=== PATIENT | male | born 1990 | race Caucasian/White ===

== ENCOUNTER 2024-07-12 22:14 | Inpatient (IN) | payer OTHER, SELFPAY ==
[2024-07-12] VITALS (7 sets, daily range): BP systolic 126–157; BP diastolic 89–117; BMI 19.6
[2024-07-12] MEDS: NSS 1000 IV ×2 (18:20→20:49)
--- NOTE | 2024-07-12 18:22 | ED.GENMED ---
History of Present Illness
General
Chief Complaint: Withdrawal Symptoms
Source: patient and police
Exam Limitations: none
Time Seen by Provider: 07/12/24 18:15
Nursing documentation reviewed up to this point in time: agreed with
History of Present Illness
History of Present Illness:
34-year-old male with a past medical history of polysubstance use presents to the emergency room in police custody for evaluation of multiple symptoms he attributes to withdrawal. Patient admits to regular alcohol intake�says he drinks primarily
beer; last alcohol intake he says was almost a week ago. He says that he regularly injects fentanyl and xylazine. He denies any other active drug use. He says he has used Suboxone in the past for opioid withdrawal. His last opioid use was
fentanyl use which he says he injected into his neck yesterday morning. He says that symptoms started yesterday evening and have been constant and worsening today. He reports nausea, vomiting, diarrhea, tremulousness, anxiety, headache. He denies
any chest pain or abdominal pain. He denies any fevers or chills. Denies other complaints.
Past History
Past History
ED Past Medical History: Other (Seizure disorder, denies taking medications for this)
ED Past Surgical History: None
Social History
Tobacco: Smoker
Alcohol: Occasional
Drug: Narcotics and IVDA
Personal: Single
Review of Systems
Review of Systems
All Other Systems: ROS reviewed and negative except as documented in HPI and ROS
Constitutional: Denies fever or chills
EENT: Reports runny nose; Denies sore throat
Respiratory: Denies cough or trouble breathing
Cardiac: Denies chest pain or palpitations
ABD/GI: Reports nausea, vomiting and diarrhea; Denies abdominal pain
: Denies flank pain
Musculoskeletal: Denies neck pain or back pain
Neurological: Reports headache; Denies dizzy
Psychiatric: Reports anxiety
Phy Exam
Physical Exam
Physical Exam:
General: Awake, alert, oriented x3; holding emesis bag appears uncomfortable
Head: Normocephalic, atraumatic
Eyes: Conjunctiva normal, sclera anicteric, pupils mildly dilated ~6 mm and reactive to light bilaterally
Throat: Airway intact, handling secretions
Neck: Trachea midline, supple without meningismus; track sharpe left neck no signs of infection
Lungs: Clear to auscultation bilaterally, no wheezing, rales, rhonchi
Heart: Tachycardia with regular rhythm, no murmurs, gallops, or rubs
Abd: Soft, non distended, nontender; patient has some track sharpe in the inguinal region bilaterally no signs of infection
Neuro: Tremulous but no gross neurologic deficits
Skin: Moist, clammy
Extremities: Good pulses in all extremities, no edema
Scores
COW Clinical Opiate Withdrawal Scale
Resting Pulse Rate: 101-120
Sweating-over past 30min not from room temp or activity: Beads of sweat on brow or face
Restlessness-observation during assessment: Reports difficulty sittin
Pupil Size: Pupils moderately dilated
Bone or Joint Aches: Mild diffuse discomfort
Runny Nose or Tearing-not accounted for by cold/allergies: Not present
GI Upset-over last 30min: Multiple episodes of diarrhea or vomiting
Tremor-observation of outstretched hands: Slight tremor observable
Yawning-observation during assessment: No yawning
Anxiety or Irritability: Patient obviously irritable or anxious
Gooseflesh Skin: Skin is smooth
Score: 18
Withdrawal Severity: Moderate Withdrawal, consider starting Suboxone
Heart Failure Risk
Heart Failure Risk Score: Not Applicable
Heart Score for Chest Pain Patients
STEMI patient?: Not applicable
Withdrawal Assessment of Alcohol
Withdrawal Assessment Completed?: Yes
Nausea and Vomiting: Mild nausea with no vomiting
Tactile Disturbances: None
Tremor: Moderate, with patient's arms extended
Auditory Disturbances: Not present
Paroxysmal Sweats: Beads of sweat obvious on forehead
Visual Disturbances: Not present
Anxiety: Moderately anxious, or guarded, so anxiety is inferred
Headache, Fullness in Head: Mild
Agitation: Moderately fidgety and restless
Orientation and clouding of sensorium: Oriented and can do serial additions
Total CIWA Score: 19
Alcohol Withdrawal Medication Recommendation: Equal to MSAS Score 8-11. Lorazepam 1-2mg IV NOW & re-assess q1hr
Course
Orders/Labs/Results
Orders:
Orders
07/12/24 18:15
Drug Screen, Urine [Urine Drug Abuse Screen] Urgent
07/12/24 18:16
0.9% Sodium Chloride 1000 ml [Nss] 1,000 ml IV BOLUS
07/12/24 18:17
Acetaminophen Urgent
Alcohol Urgent
Complete Blood Count/With Diff Urgent
Comprehensive Metabolic Panel Urgent
Salicylate Urgent
07/12/24 18:20
Buprenorphine [Subutex] 4 mg SL NOW ONE
Clonidine [Catapres] 0.2 mg PO NOW STA
Ondansetron Injectable [Zofran] 4 mg IV NOW STA
07/12/24 18:22
Lorazepam [Ativan] 0.5 mg IV NOW STA
07/12/24 19:37
Ondansetron Injectable [Zofran] 4 mg .ROUTE .STK-MED ONE
07/12/24 19:38
Ondansetron Injectable [Zofran] 4 mg IV NOW STA
07/12/24 19:58
Buprenorphine [Subutex] 8 mg SL NOW ONE
07/12/24 20:37
0.9% Sodium Chloride 1000 ml [Nss] 1,000 ml IV BOLUS
Lorazepam [Ativan] 1 mg IV NOW STA
07/12/24 20:51
Buprenorphine [Subutex] 8 mg SL NOW ONE
Abnormal Lab Results
07/12/24
18:17
WBC 16.5 H 10^3/uL
(4.8-10.8)
Plt Count 425 H 10^3/uL
(130-400)
Abs Immat Gran (auto) 0.1 H 10^3/uL
(0-0.05)
Absolute Neuts (auto) 14.0 H 10^3/uL
(1.4-6.5)
Absolute Monos (auto) 0.8 H 10^3/uL
(0.1-0.6)
Neutrophils % 84.7 H %
(42.2-75.2)
Lymphocytes % 9.4 L %
(20.5-51.1)
Creatinine 0.5 L mg/dL
(0.7-1.3)
Glucose 128 H mg/dl
(70-99)
Salicylates < 1.0 L mg/dl
(2.0-20.0)
Acetaminophen < 10 L ug/ml
(10-30)
07/12/24 18:17
07/12/24 18:17
Vital Signs
Initial and Last Documented VS:
Initial Vital Signs
Temp Pulse Resp BP Pulse Ox
36.8 C 95 24 126/93 98
07/12/24 18:06 07/12/24 18:06 07/12/24 18:06 07/12/24 18:06 07/12/24 18:06
Last Documented Vital Signs
Temp Pulse Resp BP Pulse Ox
36.8 C 98 22 154/89 99
07/12/24 18:06 07/12/24 20:15 07/12/24 20:15 07/12/24 19:00 07/12/24 20:15
MDM/Problems Addressed
Differential Diagnosis Includes:
Alcohol/opioid withdrawal
MDM/Problems Addressed:
34-year-old male presents for evaluation of multiple symptoms�anxiety, tremulousness, nausea/vomiting/diarrhea, headache; attributes the symptoms to withdrawal. He does have a history of polysubstance use he says he is a regular drinker but has not
had alcohol in over a week. More recently has been using fentanyl he says last use was yesterday morning he injected into his neck; I explained the importance of this timeline with regards to initiating Suboxone and he is adamant that his last use
was yesterday morning. Vitals and exam as above�my suspicion is that this is primarily acute opioid withdrawal. He says he has not had any alcohol in over a week have lower suspicion that his symptoms today are from acute alcohol withdrawal. Will
plan to treat with Suboxone as he is greater than 6 hours from his last injection of fentanyl. Will treat with clonidine, Zofran. Hydrate with fluids. Will treat with some Ativan as well�again although I have lower suspicion that this is acute
alcohol withdrawal this can also help him symptomatically if this is opioid withdrawal. Will monitor very closely suspect will likely need repeat doses of Suboxone. Reassess after the above.
Patient still very symptomatic after initial round of medications. Repeat Zofran, provide repeat dose of Subutex.
Patient still vomiting he did have some improvement with Ativan but none with Zofran. Repeat Ativan. Repeat Subutex. At this point with significant polysubstance withdrawal will admit for continued management. Discussed case with hospitalist.
Chronic conditions affecting care:
Polysubstance use
*Pulse Oximetry
Patient hypoxic: no
*Critical Care Note
Total Time (30-74mins, 75-104mins- exclusive of procedures): Not Applicable
Data Reviewed
Review of Other/Old Records Reveals: Labs and Records
Source: patient, records and police
Patient Management
Social determinants of health affecting care: Substance abuse
Discussion with other providers: Hospitalist (Discussed with hospitalist)
Escalation/DeEscalation of care consider admission/obs:
Admission indicated
ED Attending Note
-
Portions of this chart may have been created with voice recognition software.� Occasional wrong word or��sound alike� substitutions may have occurred due to the inherent limitations of voice recognition software.
Discharge Plan
Departure
Patient Disposition: Admit
Date of Disposition: 07/12/24
Time of Disposition: 20:53
Admit to doctor: Hol[facility]
Presentation/result/management discussed w/ accepting MD/DO: Hospitalist
Discharge Problem:
Opioid withdrawal, Alcohol withdrawal
Prescriptions:
No Action
clonidine HCl 0.1 mg Tablet
0.1 mg PO .TAPER
Patient Comments:
taper from 1t tid to 1t bid to 0.5t bid. no dates on paperwork
lorazepam 2 mg/mL Solution
2 mg IV DAILYPRN PRN (Reason: withdrawal)
ondansetron HCl 4 mg Tablet
4 mg PO TIDPRN PRN (Reason: nausea)
Patient Comments:
may be given po or im, depending on symptoms. 4mg given IV today.
loperamide 2 mg Tablet
2 mg PO TIDPRN PRN (Reason: loose stools)
acetaminophen-codeine 300-30 mg Tablet
2 tab PO .TAPER
Patient Comments:
taper from 2t tid to 2t bid to 1t bid to 1t hs. no dates on paperwork
famotidine 20 mg Tablet
20 mg PO BID
diphenhydramine HCl 50 mg/mL Solution
25 mg IV DAILYPRN PRN (Reason: withdrawal)
Referrals:
[facility] [Family Provider] -
Interventions
Interventions:
*Risk Screen - Suicide Last Done: 07/12/24 18:06
*General Assessment Last Done: 07/12/24 18:06
*Neglect/Abuse Screening Last Done: 07/12/24 18:06
*ED- Fall Risk Assessment Last Done: 07/12/24 19:04
*ED COVID-19 Vaccine History Last Done: 07/12/24 19:04
ED- Neurological Assessment Last Done: 07/12/24 19:04
ED-Psychological Assessment Last Done: 07/12/24 19:04
Discharge Date and Time
Print Language: QATARI
[2024-07-12] MEDS: ZOFRAN 4 MG IV ×2 (18:29→19:39)
[2024-07-12] MEDS: ATIVAN 0.5 MG IV (18:29)
[2024-07-12] MEDS: CATAPRES 0.2 MG PO (18:29)
[2024-07-12] MEDS: SUBUTEX 4 MG SL (18:29)
[2024-07-12 18:43] LABS: % Basophils 0.1 % (0-2); % Eosinophils 0.3 % (0-6); % Immature Granulocytes 0.4 % (0-0.5); % Lymphocytes 9.4 % (20.5-51.1); % Monocytes 5.1 % (1.7-9.3); % Neutrophils 84.7 % (42.2-75.2); Absolute Eosinophils 0.1 10^3/uL (0-0.7); Absolute Immature Granulocytes 0.1 10^3/uL (0-0.05); Absolute Lymphocytes 1.6 10^3/uL (1.2-3.4); Absolute Monocytes 0.8 10^3/uL (0.1-0.6); Hematocrit 41.1 % (39.0-52.0); Hemoglobin 13.8 g/dL (13.0-18.0); Mean Corp Hgb Conc. 33.6 g/dL (33.0-37.0); Mean Corpuscular Hgb 27.3 pg (27.0-31.0); Mean Corpuscular Volume 81.2 fL (80.0-94.0); Mean Platelet Volume 9.5 fL (7.4-10.4); Nucleated Red Blood Cells % 0 % (-); Platelet Count 425 10^3/uL (130-400); Red Blood Cell Count 5.06 10^6/uL (4.70-6.10); Red Cell Dist. Width 13.9 % (11.5-14.5); White Blood Cell Count 16.5 10^3/uL (4.8-10.8)
[2024-07-12 18:48] LABS: Chloride 103 mmol/L (98-107); Potassium 3.8 mmol/L (3.5-5.1); Sodium 145 mmol/L (135-145)
[2024-07-12 18:49] LABS: AST (SGOT) 35 U/L (17-59); Acetaminophen < 10 ug/ml (10-30); Albumin 4.4 g/dl (3.5-5.0); Alkaline Phosphatase 99 U/L (38-126); Blood Urea Nitrogen 12 mg/dl (9-20); Carbon Dioxide 27 mmol/L (22-30); Estimated Creatinine Clearance > 125 ml/min; Glucose 128 mg/dl (70-99); Salicylate < 1.0 mg/dl (2.0-20.0); Total Bilirubin 0.7 mg/dl (0.2-1.3); eGFR > 60.00
[2024-07-12 18:50] LABS: Alcohol None Detected
[2024-07-12 18:57] LABS: ALT (SGPT) 32 U/L (0-50)
[2024-07-12] MEDS: SUBUTEX 8 MG SL ×2 (20:04→21:26)
[2024-07-12] MEDS: ATIVAN 1 MG IV (20:49)
--- NOTE | 2024-07-12 21:18 | HPS.HSE ---
Family Physician
-
Family Physician: Facility [facility]
Chief Complaint
-
Drug withdrwal
History of Present Illness
HPI:
38M under custody at [facility] PMHx Seizure disorder, Polysubstance abuse seen at ER:
- multiple symptoms attributed to acute substance WDS
- reports regular ETOH intake, primarily beer: last alcohol intake he says was almost a week ago.
- Report IV fentanyl and xylazine regular abuse into the neck vein yesterday
- HX Suboxone in the past for opioid withdrawal.
- Onset of nausea, vomiting, diarrhea, tremulousness, anxiety, headache started yesterday evening
- constant and worsening today.
ROS
Denies any chest pain or abdominal pain.
Denies any fevers or chills.
Denies other complaints.
ER Tx:
Buprnorphine 8+8+4 mg SL
Clonidine 0.2 mg now
IV Lorazepam total 1.5 mg
Medical History
Past Medical History
Past Medical History: Reports Seizures
Additional Past Medical History:
Seizure disorder, Polysubstance abuse
Past Surgical History: Reports None
Social History
Alcohol: Other
Drug: Narcotics (IV fentanyl and xylazine)
Family History
Family History: Not pertinent
Allergies / Home Medications
Allergies reflects when Allergies were last updated in [facility].
Home Medications with original date entered in [facility]
Allergy/Medication List:
Allergies
Allergy/AdvReac Type Severity Reaction Status Date / Time
No Known Allergies Allergy Verified 07/12/24 18:06
Home Medications
acetaminophen 300 mg-codeine 30 mg tablet 2 tab PO .TAPER 07/12/24
clonidine HCl 0.1 mg tablet 0.1 mg PO .TAPER 07/12/24
diphenhydramine HCl 50 mg/mL injection solution 25 mg IV DAILYPRN PRN withdrawal 07/12/24
famotidine 20 mg tablet 20 mg PO BID 07/12/24
loperamide 2 mg tablet 2 mg PO TIDPRN PRN loose stools 07/12/24
lorazepam 2 mg/mL injection solution 2 mg IV DAILYPRN PRN withdrawal 07/12/24
ondansetron HCl 4 mg tablet 4 mg PO TIDPRN PRN nausea 07/12/24
Review of Systems
-
Constitutional: Reports No Symptoms
EENT: Reports No Symptoms
Respiratory: Reports No Symptoms
Cardiac: Reports No Symptoms
Abdomen/GI: Reports Nausea and Vomiting
: Reports No Symptoms
Musculoskeletal: Reports No Symptoms
Skin: Reports No Symptoms
Neurological: Reports Other (tremors )
Endocrine: Reports No Symptoms
Hematologic/Lymphatic: Reports No Symptoms
Physical Exam
Vital Signs
Vital Signs
Temp Pulse Resp BP Pulse Ox
98.2 F 98 22 154/89 99
07/12/24 18:06 07/12/24 20:15 07/12/24 20:15 07/12/24 19:00 07/12/24 20:15
Physical Exam
HEENT: NormoCephalic, Moist mucous membranes and Atraumatic
Respiratory: Clear
Cardiac: S1/S2 and Regular Rhythm; No Murmur or Rub
GI: Soft, Non Tender and Non Distended
Rectal: Deferred by Provider
Musculoskeletal: No Clubbing, No Cyanosis and No Edema
Skin: No Rash
Neuro: Tremors
Laboratory Results
-
07/12/24 18:17
07/12/24 18:17
Laboratory Results
Total Bilirubin 0.7 mg/dl (0.2-1.3) 07/12/24 18:17
AST 35 U/L (17-59) 07/12/24 18:17
ALT 32 U/L (0-50) 07/12/24 18:17
Alkaline Phosphatase 99 U/L (38-126) 07/12/24 18:17
Data Reviewed
-
Lab Data: Labs Reviewed by me
Impression/Plan
-
Selected Entries
07/12/24
18:06 07/12/24
19:00 07/12/24
19:00
Temp 98.2 F
Pulse 95 129
Resp Rate 24
Blood pressure 126/93 154/89
SaO2 98
Oxygen Mode of Delivery Room air
07/12/24
18:17
WBC 16.5 H
Plt Count 425 H
Creatinine 0.5 L
eGFR > 60.00
Salicylates < 1.0 L
Acetaminophen < 10 L
Alcohol, Quantitative None detected
Pending UDS
NO PRIOR hospitalist admission:
ASSESSMENT & PLAN
Acute Opiate WDS with COW Clinical Opiate Withdrawal Scale per ER : Score: 18
Withdrawal Severity: Moderate Withdrawal, consider starting Suboxone
- s/p Buprenorphine 8+8+4 mg SL Clonidine 0.2 mg now and IV Lorazepam total 1.5 mg
- remain symptomatic after initial round of medications
- still vomiting he did have some improvement with Ativan but none with Zofran. R
- Psych consult
Current IVDA ( Fentanyl and xylazine )
Polysubstance use
- as above
- check Hep C
DVT Px: LMWH
Full code
IMU
[2024-07-12 22:18] LABS: Amphetamines Negative (Negative); Barbiturates Negative (Negative); Benzodiazepines Positive (Negative); Buprenorphine Positive (Negative); Cocaine Positive (Negative); Methadone Negative (Negative); Methamphetamines Negative (Negative); Opiates Positive (Negative); Phencyclidine Negative (Negative)
[2024-07-12 22:19] LABS: Marijuana Positive (Negative); Tricyclic Antidepressants Negative (Negative)
[2024-07-12 22:36] LABS: Fentanyl, Urine Positive (Negative)
[2024-07-13] VITALS (12 sets, daily range): BP systolic 128–173; BP diastolic 69–112
[2024-07-13] MEDS: CATAPRES 0.1 MG PO ×5 (00:13→23:29)
[2024-07-13] MEDS: COMPAZINE 5 MG IV (00:13)
[2024-07-13] MEDS: OFIRMEV 100 IV (00:13)
[2024-07-13] MEDS: TYLENOL PO (00:14)
--- NOTE | 2024-07-13 00:39 | PTCARENOTE ---
Received verbal report from Keya JEAN BAPTISTE. Patient in opioid withdraw. Patient vomiting brown/green emesis. Patient not very cooropative, only nodding head to answer questions but will follow commands with multiple attempts of asking. Cow score 20. call
samuels in reach.
[2024-07-13] MEDS: TORADOL 15 MG IV (04:14)
[2024-07-13 05:09] LABS: ALT (SGPT) 19 U/L (0-50); AST (SGOT) 28 U/L (17-59); Albumin 4.2 g/dl (3.5-5.0); Alkaline Phosphatase 88 U/L (38-126); Direct Bilirubin 0.2 mg/dl (0.0-0.4); Total Bilirubin 0.8 mg/dl (0.2-1.3)
--- NOTE | 2024-07-13 06:09 | PTCARENOTE ---
patient tempt 100.7 after IV Tylenol given, AEROTRIANGULATION SPECIALIST made aware of tempt. IV Toradol one time dose ordered.
--- NOTE | 2024-07-13 08:30 | W.PN.HOSP.TC ---
Today's Communication/Plan
-
see A/P
Assessment / Plan
Assessment / Plan
HPI: 38 yo M under custody at [facility] with [facility] Seizure disorder, Polysubstance abuse; p/w multiple symptoms likely 2/2 acute substance withdrawal.
Symptoms include constant and worsening nausea, vomiting, diarrhea, tremor, anxiety, headache, all started the day RIPENING ROOM HAND.
He reported regular ETOH intake (primarily beer, last alcohol intake he said was almost a week RIPENING ROOM HAND), also reported IV fentanyl and xylazine abuse (through neck vein, last use day RIPENING ROOM HAND).
He has h/o Suboxone use in the past for opioid withdrawal.
A/P:
# Likely Acute Opiate WDS
# Polysubstance use, Current IVDA (Fentanyl and xylazine)
UDS noted
Cont COWS opiate Withdrawal protocol
Add MSAS protocol with IV Ativan PRN
IV PPI to empiric gastric protection
check lipase level (pt c/o abd pain)
Clears today and ADAT
Zofran PRN for N/V
Psych consult
Hep C was sent, can follow up
# Fever and leucocytosis suspect 2/2 withdrawal
can check blood Cx x2
cover with empiric ceftriaxone for now
DVT Px: LMWH
Full code
DW RN
total time spent 51 min
Anticipated Discharge: > 48 hours
Subjective/Interval History
-
Date of Service: July 13, 2024
Objective Data
-
Labs:
Laboratory Results
07/13/24
04:51
Total Bilirubin 0.8
AST 28
ALT 19
Alkaline Phosphatase 88
Vital Signs:
Vital Signs
Temp Pulse Resp BP Pulse Ox
38.3 C H 113 34 151/85 96
07/13/24 07:52 07/13/24 06:00 07/13/24 06:00 07/13/24 06:00 07/13/24 06:00
Review of Systems
-
All other systems: Reviewed and negative
Psych: Reports Anxious
Physical Exam
-
General: Well Developed, Well Nourished, Comfortable and Conversant; Negative Respiratory Distress
HEENT: Normocephalic, Atraumatic, Nose Appears Normal and Ears Appear Normal; Negative Oxygen
Respiratory: Clear to Auscultation and Non Labored Respirations; Negative Accessory Resp Muscle Use
Cardiac: Regular Rhythm, S1/S2 and Tachycardic
GI: Soft, Nontender, Nondistended and Normal Bowel Sounds
Skin: Warm and Dry
Neuro: Awake, Alert, Oriented and Tremors
Psych: Calm, Intact Judgement/Insight (somewhat) and Anxious
Data Reviewed
-
Labs: Labs Reviewed by me
[2024-07-13] MEDS: TYLENOL 1000 MG PO ×3 (09:08→23:29)
[2024-07-13] MEDS: SUBUTEX 16 MG SL (09:17)
[2024-07-13] MEDS: VITAMIN B1 100 MG PO ×2 (09:18→23:29)
[2024-07-13] MEDS: FOLVITE 1 MG PO (09:19)
[2024-07-13] MEDS: PROTONIX IV 40 MG IV (09:19)
[2024-07-13] MEDS: ATIVAN 2 MG IV ×4 (09:20→21:06)
[2024-07-13 09:39] LABS: Lipase 38 U/L (23-300)
[2024-07-13] MEDS: ATIVAN 1 MG PO (10:38)
[2024-07-13] MEDS: SUBUTEX 4 MG SL (11:37)
[2024-07-13] MEDS: ROCEPHIN 1000 MG IV (11:39)
[2024-07-13] MEDS: STERILE WATER FOR INJECTION 10 ML IV (11:39)
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
--- NOTE | 2024-07-13 16:01 | CM ---
provider relations manager reviewed patient's chart and patient was admitted with seizure d/o, polysubstance abuse from [facility]. Patient has 2 guards at bedside and plan is for patient to return to [facility] when stable.
[facility]
Report [phone]
[2024-07-13] MEDS: LOVENOX 40 MG SC (18:07)
--- NOTE | 2024-07-13 19:32 | PTCARENOTE ---
Responded to Subutex and Ativan this am, msas down to low of 2 at 3PM. Around 5 I was called in to him removeing monitors, hallucinating- MSAS back up to 12- protocol followed- required 2nd dose ativan- post assessment 4. BP currently 160s/90s
took Catapres x2 this shift. Tolerating some clear liquids. RONALD INT patent. Guards present.
--- NOTE | 2024-07-13 21:30 | PTCARENOTE ---
Received pt from robby RN. Pt ox1 to self. Pt nauseous and states 'there are animals running around the room.' MSAS completed q1 (see worklist). Current MSAS 12 and PRN Ativan administered per protocol (see MAR). Hygiene and full bed change
completed. Pt in bed with two guards at bedside.
[2024-07-14] VITALS (12 sets, daily range): BP systolic 123–151; BP diastolic 64–108
[2024-07-14] MEDS: ZOFRAN 4 MG IV ×3 (01:08→23:28)
--- NOTE | 2024-07-14 04:37 | PTCARENOTE ---
Pt aaox3 and appears calm. Hygiene completed. PRN Zofran given for nausea (see MAR). Pt resting in bed with call samuels in reach.
[2024-07-14] MEDS: CATAPRES 0.1 MG PO ×3 (05:22→23:22)
[2024-07-14 05:49] LABS: % Basophils 0.6 % (0-2); % Eosinophils 0.1 % (0-6); % Immature Granulocytes 0.4 % (0-0.5); % Lymphocytes 32.3 % (20.5-51.1); % Monocytes 8.7 % (1.7-9.3); % Neutrophils 57.9 % (42.2-75.2); Absolute Basophils 0.1 10^3/uL (0-0.2); Absolute Lymphocytes 3.1 10^3/uL (1.2-3.4); Absolute Monocytes 0.8 10^3/uL (0.1-0.6); Absolute Neutrophils 5.6 10^3/uL (1.4-6.5); Hematocrit 34.8 % (39.0-52.0); Hemoglobin 11.6 g/dL (13.0-18.0); Mean Corp Hgb Conc. 33.3 g/dL (33.0-37.0); Mean Corpuscular Hgb 27.4 pg (27.0-31.0); Mean Corpuscular Volume 82.3 fL (80.0-94.0); Nucleated Red Blood Cells % 0 % (-); Platelet Count 314 10^3/uL (130-400); Red Blood Cell Count 4.23 10^6/uL (4.70-6.10); Red Cell Dist. Width 14.4 % (11.5-14.5); White Blood Cell Count 9.6 10^3/uL (4.8-10.8)
[2024-07-14 06:49] LABS: Blood Urea Nitrogen 15 mg/dl (9-20); Calcium 9.5 mg/dl (8.4-10.2); Carbon Dioxide 27 mmol/L (22-30); Chloride 110 mmol/L (98-107); Estimated Creatinine Clearance > 125 ml/min; Glucose 99 mg/dl (70-99); Magnesium 2.2 mg/dl (1.6-2.3); Potassium 3.3 mmol/L (3.5-5.1); Sodium 144 mmol/L (135-145); eGFR > 60.00
[2024-07-14] MEDS: VITAMIN B1 100 MG PO ×2 (07:44→20:35)
[2024-07-14] MEDS: TYLENOL 1000 MG PO ×3 (07:44→23:22)
[2024-07-14] MEDS: FOLVITE 1 MG PO (07:45)
[2024-07-14] MEDS: SUBUTEX 16 MG SL (07:46)
--- NOTE | 2024-07-14 07:47 | W.PN.HOSP.TC ---
Addendum entered and electronically signed by Alma Yao MD 07/14/24 13:52:
Discussed with nursing and psychiatrist, felt there is drug-seeking behavior.
Psychiatrist recommend to stop MSAS with Ativan which I did.
Original Note:
Today's Communication/Plan
-
see A/P
Assessment / Plan
Assessment / Plan
HPI: 38 yo M under custody at [facility] with [facility] Seizure disorder, Polysubstance abuse; p/w multiple symptoms likely 2/2 acute substance withdrawal.
Symptoms include constant and worsening nausea, vomiting, diarrhea, tremor, anxiety, headache, all started the day OUTER DIAMETER GRINDER.
He reported regular ETOH intake (primarily beer, last alcohol intake he said was almost a week OUTER DIAMETER GRINDER), also reported IV fentanyl and xylazine abuse (through neck vein, last use day OUTER DIAMETER GRINDER).
He has h/o Suboxone use in the past for opioid withdrawal.
A/P:
# SIRS likely 2/2 Acute Opiate WDS
# Polysubstance use, Current IVDA (Fentanyl and xylazine)
UDS noted
Cont COWS opiate Withdrawal protocol
Cont MSAS protocol with IV Ativan PRN
IV PPI to empiric gastric protection
lipase level WNL
Advance clears to full and then regular if able to tolerate
Zofran PRN for N/V
Psych consulted
Hep C was sent, can follow up
# Fever and leucocytosis suspect 2/2 withdrawal
follow blood Cx x2
fever has resolved
empiric ceftriaxone until cultures negative
# Insomnia
pt states that he takes Remeron 30 mg OUTER DIAMETER GRINDER, need pharmacy to verify
Remeron 15 mg HS added for now
# Hypokalemia
replete
DVT Px: LMWH
Full code
DW RN
total time spent 51 min
Anticipated Discharge: > 48 hours
Subjective/Interval History
-
Date of Service: July 14, 2024
Objective Data
-
Labs:
Laboratory Results
07/14/24
05:27
WBC 9.6
Hgb 11.6 L
Hct 34.8 L
Plt Count 314 D
Sodium 144
Potassium 3.3 L
Chloride 110 H
Carbon Dioxide 27
BUN 15
Creatinine 0.6 L
Glucose 99
Calcium 9.5
Vital Signs:
Vital Signs
Temp Pulse Resp BP Pulse Ox
37.1 C 67 23 145/106 98
07/13/24 22:00 07/14/24 05:22 07/14/24 04:00 07/14/24 05:22 07/13/24 22:16
I&O
07/13/24 07/14/24 07/15/24
06:59 06:59 06:59
Output Total 500 / 500
Balance -500 / -500
Review of Systems
-
All other systems: Reviewed and negative
Psych: Reports Anxious
Physical Exam
-
General: Well Developed, Well Nourished, Comfortable and Conversant; Negative Respiratory Distress
HEENT: Normocephalic, Atraumatic, Nose Appears Normal and Ears Appear Normal; Negative Oxygen
Respiratory: Clear to Auscultation and Non Labored Respirations; Negative Accessory Resp Muscle Use
Cardiac: Regular Rhythm and S1/S2
GI: Soft, Nontender, Nondistended and Normal Bowel Sounds
Skin: Warm and Dry
Neuro: Awake, Alert and Oriented
Psych: Calm and Intact Judgement/Insight (somewhat)
Data Reviewed
-
Labs: Labs Reviewed by me
[2024-07-14] MEDS: SUBUTEX 4 MG SL (07:48)
[2024-07-14] MEDS: PROTONIX IV 40 MG IV (07:49)
[2024-07-14] MEDS: ZANAFLEX 2 MG PO (08:38)
[2024-07-14] MEDS: KCL 270 MEQ IV (08:39)
--- NOTE | 2024-07-14 11:14 | W.PN.UPDATE ---
Update Note
Progress Note Update
patient seen chart reviewed. discussed with nursing. noted dr fischer ordered gabapentin and remeron for sleep tonight. i do have some concern that patient is med seeking and discussed with him that while psychotropic medications have their place
they too can be prescribed to excess. while i was speaking to him the patient said he felt he needed ativan but frankly at that moment his vital signs were stable . he did not appear diaphoretic or tremulous and was not in distress. he has had bp
with excursions into the higher range but pulse has been normal. temp has been low grade or normal. would be careful to medicate as per protocol. allegedly he has not drunk etoh in over a week and the sx he is feeling could be secondary to opiate
wd which is to be expected. he told me about his two sibs one of whom recently from opiate od and his sister is in the hospital at [facility] after being revived w narcan and suffering a head injury as she was being revived. he is at this point
verbalizing a willingness to participate in an in pt rehab with intense followup afterwards. will follow
[2024-07-14] MEDS: ROCEPHIN 1000 MG IV (11:30)
[2024-07-14] MEDS: STERILE WATER FOR INJECTION 10 ML IV (11:30)
--- NOTE | 2024-07-14 15:10 | CM ---
Patient from [facility] with Dx SIRS likely 2/2 Acute Opiate WDS, Polysubstance use, Current IVDA. Positive tox screen. Room air. Receiving Subutex, IV Abx. MSAS & COWS per nursing.
Seen by Psych today: he is at this point verbalizing a willingness to participate in an in pt rehab with intense followup afterwards.
Spoke with Isamar, Nurse [facility]; if patient needs Inpatient D&A Rehab they will coordinate after he returns.
[facility] Report [phone], .
Plan return to [facility] with guards when medically ready.
[2024-07-14] MEDS: TORADOL 10 MG IV (15:20)
[2024-07-14 19:53] LABS: Hepatitis C Antibody Reactive (Negative)
[2024-07-14] MEDS: LOVENOX 40 MG SC (20:34)
[2024-07-14] MEDS: NEURONTIN 100 MG PO (23:21)
[2024-07-14] MEDS: REMERON 15 MG PO (23:21)
[2024-07-15] VITALS: BP 147/103
[2024-07-15 02:00] VITALS: BP 145/99
[2024-07-15 04:00] VITALS: BP 136/90
[2024-07-15 05:34] LABS: % Basophils 0.8 % (0-2); % Immature Granulocytes 0.3 % (0-0.5); % Lymphocytes 36.8 % (20.5-51.1); % Monocytes 9.3 % (1.7-9.3); % Neutrophils 50.8 % (42.2-75.2); Absolute Basophils 0.1 10^3/uL (0-0.2); Absolute Eosinophils 0.2 10^3/uL (0-0.7); Absolute Lymphocytes 4.1 10^3/uL (1.2-3.4); Absolute Monocytes 1.1 10^3/uL (0.1-0.6); Absolute Neutrophils 5.7 10^3/uL (1.4-6.5); Hematocrit 35.8 % (39.0-52.0); Mean Corp Hgb Conc. 33.5 g/dL (33.0-37.0); Mean Corpuscular Hgb 27.2 pg (27.0-31.0); Mean Corpuscular Volume 81.2 fL (80.0-94.0); Mean Platelet Volume 9.6 fL (7.4-10.4); Nucleated Red Blood Cells % 0 % (-); Platelet Count 305 10^3/uL (130-400); Red Blood Cell Count 4.41 10^6/uL (4.70-6.10); White Blood Cell Count 11.2 10^3/uL (4.8-10.8)
[2024-07-15 05:53] LABS: Blood Urea Nitrogen 13 mg/dl (9-20); Calcium 9.5 mg/dl (8.4-10.2); Carbon Dioxide 26 mmol/L (22-30); Chloride 106 mmol/L (98-107); Estimated Creatinine Clearance 120 ml/min; Glucose 93 mg/dl (70-99); Magnesium 2.1 mg/dl (1.6-2.3); Potassium 3.6 mmol/L (3.5-5.1); Sodium 142 mmol/L (135-145); eGFR > 60.00
[2024-07-15 06:00] VITALS: BP 128/79
[2024-07-15 08:00] VITALS: BP 129/88
--- NOTE | 2024-07-15 08:23 | W.PN.HOSP.TC ---
Addendum entered and electronically signed by Alma Yao MD 07/15/24 14:13:
total DC time 39 min
Original Note:
Today's Communication/Plan
-
see A/P
Assessment / Plan
Assessment / Plan
HPI: 38 yo M under custody at [facility] with H Seizure disorder, Polysubstance abuse; p/w multiple symptoms likely 2/2 acute substance withdrawal.
Symptoms include constant and worsening nausea, vomiting, diarrhea, tremor, anxiety, headache, all started the day BATCH TESTER.
He reported regular ETOH intake (primarily beer, last alcohol intake he said was almost a week BATCH TESTER), also reported IV fentanyl and xylazine abuse (through neck vein, last use day BATCH TESTER).
He has h/o Suboxone use in the past for opioid withdrawal.
A/P:
# SIRS 2/2 Acute Opiate WDS
# Polysubstance use, Current IVDA (Fentanyl and xylazine)
UDS noted
Cont COWS opiate Withdrawal protocol
Off MSAS protocol. There is concern for drug seeking behavior
diet has been advanced to regular and pt tolerated well
Zofran PRN for N/V
Psych on board
Hep C Ab positive, he will need outpt eval for treatment
Can DC further empiric PPI for gastric protection
tapering clonidine to off
# Fever and leucocytosis 2/2 withdrawal
Blood Cx x2 negative, fever has resolved
DC further empiric ceftriaxone
# Insomnia
cont BATCH TESTER Remeron 30 mg BATCH TESTER
# Hypokalemia
replete
DVT Px: LMWH
Full code
DW RN
Anticipated Discharge: 24 - 48 hours
Subjective/Interval History
-
Date of Service: July 15, 2024
Objective Data
-
Labs:
Laboratory Results
07/15/24
05:15
WBC 11.2 H
Hgb 12.0 L
Hct 35.8 L
Plt Count 305
Sodium 142
Potassium 3.6
Chloride 106
Carbon Dioxide 26
BUN 13
Creatinine 0.7
Glucose 93
Calcium 9.5
Vital Signs:
Vital Signs
Temp Pulse Resp BP Pulse Ox
37.5 C 56 15 128/79 98
07/15/24 07:37 07/15/24 06:00 07/15/24 06:00 07/15/24 06:00 07/15/24 03:33
I&O
07/14/24 07/15/24 07/16/24
06:59 06:59 06:59
Intake Total 900 / 900 480 / 480
Output Total 500 / 500 1500 / 1500 1200 / 1200
Balance -500 / -500 -600 / -600 -720 / -720
Review of Systems
-
All other systems: Reviewed and negative
Physical Exam
-
General: Well Developed, Well Nourished, Comfortable and Conversant; Negative Respiratory Distress
HEENT: Normocephalic, Atraumatic, Nose Appears Normal and Ears Appear Normal; Negative Oxygen
Respiratory: Clear to Auscultation and Non Labored Respirations; Negative Accessory Resp Muscle Use
Cardiac: Regular Rhythm and S1/S2
GI: Soft, Nontender, Nondistended and Normal Bowel Sounds
Skin: Warm and Dry
Neuro: Awake and Alert
Psych: Calm; Negative Intact Judgement/Insight
Data Reviewed
-
Labs: Labs Reviewed by me
[2024-07-15] MEDS: TYLENOL 1000 MG PO (08:26)
[2024-07-15] MEDS: SUBUTEX 4 MG SL (08:27)
[2024-07-15] MEDS: SUBUTEX 16 MG SL (08:27)
[2024-07-15] MEDS: VITAMIN B1 100 MG PO (08:27)
[2024-07-15] MEDS: CATAPRES 0.1 MG PO (08:28)
[2024-07-15] MEDS: FOLVITE 1 MG PO (08:28)
--- NOTE | 2024-07-15 08:42 | PTCARENOTE ---
Assumed care of patient at walking rounds. He is alert calm at this time. COWS score 4. Patient given his scheduled Subtex dose. Pt requests if he can 'hold onto one for later'. Explained to pt that dosing is for withdrawal management and needs to
be administered per MD order set. Pt agreeable to take full dose and patient monitored until meds are fully dissolved. Guards are at bedside, Shackle intact to left ankle, skin CDI, no redness noted. Pt sitting up in bed eating breakfast and reports
no nausea just a mild abdominal discomfort. Pt tolerated 90% of breakfast. NSR on monitor, Resp even and regular on Room air pulse ox, lungs clear throughout.
[2024-07-15] MEDS: KCL 40 MEQ PO (08:55)
[2024-07-15] MEDS: PROTONIX IV IV (09:16)
[2024-07-15] MEDS: ZANAFLEX 2 MG PO (11:47)
[2024-07-15] MEDS: ZOFRAN 4 MG IV (11:47)
[2024-07-15] MEDS: FLUSH (NSS) 2 FLUSH IV (11:48)
--- NOTE | 2024-07-15 12:44 | CM ---
Patient from [facility].
[facility] Report [phone], .
Plan return to [facility] today with guards.
--- NOTE | 2024-07-15 13:53 | PTCARENOTE ---
Patient report called to [facility] Nurse, paperwork/discharge faxed and copy of discharge provided to guards in envelope. Pt is calm, slight tremor at times, no diaphoresis, heart rate 60-70, no shortness of breath,
pt voiding clear yellow urine in urinal. Nausea resolved at this time.
--- NOTE | 2024-07-15 14:02 | W.DCSUMMARY ---
Discharge Summary
Discharge Data
Date of Admission: 07/12/24
Date of Discharge: 07/15/24
-
Pending Results: No
Hospital Course
Principal Diagnosis:
SIRS due to Acute Opiate withdrawal.
Chronic Diagnoses:�
Insomnia, on Remeron 30 mg prior to admission
Seizure disorder
Polysubstance abuse, currently IVDA with Fentanyl and xylazine
Consultations:�
Psychiatry
Procedures:�
None
Clinical course:�
This is a 34-year-old male, who was sent in from care home due to acute substance withdrawal.
He was complaining of nausea, vomiting, diarrhea, tremor, anxiety, and headache.
Problem 1:
SIRS due to Acute Opiate withdrawal.
His UDS was positive for opioids, buprenorphine, fentanyl, benzodiazepines (could be iatrogenic), cocaine, and marijuana.
He was treated/covered with the opiate withdrawal protocol while in the hospital.
His GI symptoms resolved, and he was able to tolerate a regular diet without further complaint.
Of note, his hepatitis C antibody was checked and it was positive. He has been informed to follow-up with outpatient GI for further workup and treatment of hepatitis C.
With clinical stabilization, he was cleared for discharge back to care home.
As for the rest of his medical problems, they were stable during his hospital stay.
Discharge Plan
-
Patient Disposition: Longterm
Discharge Diagnosis/Procedures: Acute opiate withdrawal syndrome;
Polysubstance use (with current IV drug use with Fentanyl and xylazine);
Hepatitis C antibody positive
Condition: Fair
Diet: As tolerated
Activity: As tolerated
Driving Restrictions: No driving
Activity Restrictions/Additional Instructions:
Your Hepatitis C Antibody is positive. You will need outpatient evaluation for treatment for hepatitis C infection.
Referrals:
[facility] [Family Provider] - in less than 1 week
Prescriptions:
New
gabapentin 100 mg Capsule
100 mg PO TID Qty: 90 0RF
Continued
ondansetron HCl 4 mg Tablet
4 mg PO TIDPRN PRN (Reason: nausea)
Patient Comments:
may be given po or im, depending on symptoms. 4mg given IV today.
loperamide 2 mg Tablet
2 mg PO TIDPRN PRN (Reason: loose stools)
famotidine 20 mg Tablet
20 mg PO BID
acetaminophen 500 mg Tablet
1,000 mg PO Q6H PRN (Reason: mild pain)
Patient Comments:
Per [facility] records
ibuprofen 400 mg Tablet
400 mg PO Q8H PRN (Reason: pain)
Patient Comments:
Per [facility] records
omeprazole 20 mg Capsule,Delayed Release(Dr/Ec)
20 mg PO BID
Patient Comments:
Per [facility] records
loperamide 2 mg Tablet
2 mg PO Q6H PRN (Reason: diarrhea)
Patient Comments:
Per [facility] records
mirtazapine 30 mg Tablet
30 mg PO HS
Patient Comments:
Per [facility] records; last filled 06/10/24 for 30 days
hydroxyzine HCl 25 mg Tablet
25 mg PO Q6HPRN PRN (Reason: anxiety, insomnia)
Patient Comments:
Per [facility] records
ipratropium bromide 21 mcg (0.03 %) [place],Non-Aerosol
2 spray INTRANASAL BIDPRN PRN (Reason: allergies)
Patient Comments:
Per [facility] records
buprenorphine-naloxone 8-2 mg Film
1 film BUCCAL QID
Patient Comments:
Per [facility] records; per PDMP, last filled 07/08/24 #16 for 4 days
clonidine HCl 0.1 mg Tablet
0.1 mg PO .TAPER Qty: 0 0RF
Patient Comments:
taper from 1t tid to 1t bid to 0.5t bid. no dates on paperwork
Rx Instructions:
0.1 mg TID x2 days, BID x2 days, daily x2 days, then stop
Discontinued
lorazepam 2 mg/mL Solution
2 mg IV DAILYPRN PRN (Reason: withdrawal)
acetaminophen-codeine 300-30 mg Tablet
2 tab PO .TAPER
Patient Comments:
taper from 2t tid to 2t bid to 1t bid to 1t hs. no dates on paperwork
diphenhydramine HCl 50 mg/mL Solution
25 mg IV DAILYPRN PRN (Reason: withdrawal)
tizanidine 4 mg Tablet
4 mg PO TID
Patient Comments:
Per [facility] records
clonidine HCl 0.3 mg Tablet
0.3 mg PO TID
Patient Comments:
Per [facility] records
gabapentin 800 mg Tablet
800 mg PO TID
Patient Comments:
Per [facility] records; last filled 06/08/24 for 30 days
clonazepam 2 mg Tablet
2 mg PO BID
Patient Comments:
Per [facility] records; per PDMP, last filled 07/08/24 #8 for 4 days
Discharge Orders:
Discharge Patient (As Directed); Ordered 07/15/24
Ordered By: Alma Yao
Discharge Date and Time
Print Language: MACEDONIAN
== END 2024-07-15 15:19 | DRG 897 ==
LOC: IMU 22:14
PROVIDERS: ADMITTING PHYSICIAN Internal Medicine; ATTENDING PHYSICIAN Internal Medicine; EMERGENCY PHYSICIAN Emergency Medicine; OTHER PHYSICIAN Psychiatry & Neurology Psychiatry
DX: F11.23 Opioid dependence with withdrawal (principal); R65.10 Systemic inflammatory response syndrome (SIRS) of non-infectious origin without acute organ dysfunction; F41.9 Anxiety disorder, unspecified; R51.9 Headache, unspecified; G40.909 Epilepsy, unspecified, not intractable, without status epilepticus; F17.200 Nicotine dependence, unspecified, uncomplicated; F32.A Depression, unspecified; R25.1 Tremor, unspecified; F10.10 Alcohol abuse, uncomplicated; F19.10 Other psychoactive substance abuse, uncomplicated; D72.829 Elevated white blood cell count, unspecified; B19.20 Unspecified viral hepatitis C without hepatic coma; G47.00 Insomnia, unspecified; E87.6 Hypokalemia; Z62.810 Personal history of physical and sexual abuse in childhood; Z91.51 Personal history of suicidal behavior; Z81.8 Family history of other mental and behavioral disorders; Z81.3 Family history of other psychoactive substance abuse and dependence; Z63.79 Other stressful life events affecting family and household; Z63.4 Disappearance and death of family member; Z76.5 Malingerer [conscious simulation]
CPT/HCPCS: 80048; 80053; 80076; 80143; 80179; 80306; 80307; 82077; 83690; 83735; 85025; 86803; 87040; 87070; 96361; 96374; 96375; 96376; 99285; 99406